=== PATIENT | female | born 1965 | race Two or more races ===

== ENCOUNTER 2022-07-05 08:53 | Outpatient (CLI) | payer OTHER | END 2022-07-05 09:02 | disposition home or self-care (01) | LOC: SONOGRAMA 08:53 | PROVIDERS: ATTEND Pathology Anatomic Pathology & Clinical Pathology | DX: D44.0 Neoplasm of uncertain behavior of thyroid gland (principal); E07.9 Disorder of thyroid, unspecified ==

== ENCOUNTER 2022-09-02 09:01 | Outpatient (CLI) | payer OTHER | END 2022-09-02 09:04 | disposition home or self-care (01) | LOC: SONOGRAMA 09:01 | PROVIDERS: ATTEND Pathology Anatomic Pathology & Clinical Pathology | DX: D34 Benign neoplasm of thyroid gland (principal) ==